=== PATIENT | male | born 1960 | race Caucasian/White ===

== ENCOUNTER → 2018-07-21 | Outpatient (CLI) | payer BC ==
--- NOTE | 2018-07-25 09:42 | Diagnostic Imaging Report ---
Left knee MRI without contrast. History: Knee pain. Decreased range of motion. Twisting injury. Internal arrangement. Comparison: None. Technique: Multiplanar multi-sequence MRI of the knee without contrast. Findings: Medial compartment: There is a complex tear involving the posterior horn and body segments of the medial meniscus best seen on series 3 image 30. The medial compartmental articular cartilage surfaces are thinned with regions of fraying and fissuring. There is a mild sprain of the medial collateral ligament. There is soft tissue edema at the medial knee. Lateral compartment: No meniscal tear or cartilage abnormality. The LCL complex is normal. Intercondylar notch: The ACL and PCL are intact. Patellofemoral compartment: There is articular cartilage fraying and fissuring in the patellofemoral compartment. Extensor mechanism: The quadriceps and patellar tendons are normal. Other findings: There is a joint effusion and synovitis. There is no acute fracture, subluxation or avascular necrosis. There is a lobulated septated Christina's cyst. 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 There is a mild sprain of the medial collateral ligament. Joint effusion, synovitis and Christina's cyst. Articular cartilage fraying and fissuring in the patellofemoral compartment. Signed by: Dr. Hair Summers M.D. on 07/25/2018 9:39 AM
== END ==
LOC: MRI 16:29
PROVIDERS: ATTEND Specialist
DX: M23.92 Unspecified internal derangement of left knee (principal)